=== PATIENT | female | born 1990 | race Caucasian/White ===

== ENCOUNTER 2017-04-06 16:05 | Emergency (ER) | payer BC ==
[2017-04-06 16:36] VITALS: BP 128/83
--- NOTE | 2017-04-06 16:36 | UC ---
Respiratory Complaint HPI - HPI Summary HPI Summary: This is an otherwise healthy 26 yo female who presents with c/o for 1 week. It is mostly non-productive. No associated fever or SOB. No n/v/d or rash. Patient states that she has spent a lot of time in [facility] within the last couple of weeks and there was recently a notice a pertussis outbreak in [facility]. She has a 2 month old son at home and is mostly worried about his exposure risk and for that reason would like to be tested for pertussis. - History of Current Complaint Chief Complaint: UCRespiratory Stated Complaint: COUGH Hx Last Menstrual Period: 04/22/16 - Allergies/Home Medications Allergies/Adverse Reactions: Allergies Allergy/AdvReac Type Severity Reaction Status Date / Time No Known Allergies Allergy Verified 04/06/17 16:14 Home Medications: Home Medications Vitamin TAB* 1 tab PO DAILY 04/06/17 [History Confirmed 04/06/17] PMH/Surg Hx/FS Hx/Imm Hx Previously Healthy: Yes - Surgical History Surgical History: Yes Surgery Procedure, Year, and Place: Sinus Surgery X 2, 2009, [facility]. Right ACL Menisus, 2009, [place]. T&A, 2006, [facility] - Social History Alcohol Use: Occasionally Substance Use Type: None Smoking Status (MU): Never Smoked Tobacco Have You Smoked in the Last Year: No - Immunization History Most Recent Influenza Vaccination: Current for 2015/2016 Season Most Recent Tetanus Shot: Tdap 2015 Review of Systems Constitutional: Negative Skin: Negative Eyes: Negative ENT: Negative Respiratory: Cough Cardiovascular: Negative Gastrointestinal: Negative Genitourinary: Negative Motor: Negative Neurovascular: Negative Musculoskeletal: Negative Neurological: Negative Psychological: Negative All Other Systems Reviewed And Are Negative: Yes Physical Exam Triage Information Reviewed: Yes Appearance: Well-Appearing Vital Signs: Initial Vital Signs Temp 98.1 F 04/06/17 16:08 Pulse 82 04/06/17 16:08 Resp 16 04/06/17 16:08 BP 128/83 04/06/17 16:08 Pulse Ox 98 04/06/17 16:08 Vital Signs Reviewed: Yes ENT: Positive: Normal ENT inspection Neck: Positive: Supple, Nontender, No Lymphadenopathy Respiratory: Positive: Chest non-tender, Lungs clear, Normal breath sounds. Negative: Crackles, Rhonchi, Stridor, Wheezing Cardiovascular: Positive: RRR, No Murmur Abdomen Description: Positive: Nontender Diagnostic Evaluation - Laboratory O2 Sat by Pulse Oximetry: 98 Respiratory Course/Dx - Course Course Of Treatment: This is an otherwise healthy 26 yo female with a 2month old at home who presents with a mild cough and concern for pertussis, requesting testing. Discussed empiric treatment, which she declined. Nasal specimen was collected. - Differential Dx/Diagnosis Differential Diagnosis/HQI/PQRI: Bronchitis, Influenza, Sinusitis Provider Diagnoses: 1. Cough, likely viral Discharge - Discharge Plan Condition: Stable Disposition: HOME Patient Education Materials: Pertussis (ED) Referrals: Bonnie Duran [Primary Care Provider] - If Needed Additional Instructions: Instructions: 1. It will take several days for your test results to return, but suspicion is low that your cough represents pertussis
== END 2017-04-06 16:38 | disposition home or self-care (01) ==
LOC: UCCORT 16:05
DX: R05 Cough (principal)
CPT/HCPCS: 87798; 99211; G0463

== ENCOUNTER 2017-09-14 07:38 | Emergency (ER) | payer BC ==
--- OUTSIDE RECORDS SUMMARY | 2017-09-14 07:46 | XMS REPORT ---
:1990 External Reference #:[id number] Author Organization [facility] Address [address], [address] [place] [address] Phone [phone] Care Team Providers Name Role Phone Karen Blackburn PA-C Care Team Information [employer] Officer Unavailable Karen Blackburn PA-C Primary Care Physician Unavailable Payers Type Date Identification Numbers Payment Provider Subscriber Commercial Policy Number: [id number] [employer] [place] Goldie Dodson PayID: [id number] [address] [address] [place] [address] Problems Description No Information Social History Type Date Description Comments Marital Status Occupation Teacher ETOH Use Rarely consumes alcohol Smoking Patient denies history of smoking Recreational Drug Use Denies Drug Use Daily Caffeine Consumes on average 1 cup of regular coffee per day Allergies, Adverse Reactions, Alerts Date Description Reaction Status Severity Comments 09/02/2017 NKDA active Medications Medication Date Status Form Strength Qnty SIG Indications Ordering Provider Active Tablets 1 by mouth Unknown every day Vital Signs Date Vital Result Comment 09/02/2017 BP Systolic 122 mmHg BP Diastolic 80 mmHg Height 70 inches 5'10" Weight 222.00 lb BMI (Body Mass Index) 31.9 kg/m2 BSA (Body Surface Area) 2.18 m2 [place] body weight in kilograms 68 Results Description No Information Procedures Date CPT Code Description Status 01/28/2017 20452 Vaginal Delivery Only Completed Encounters Type Date Location Provider CPT E/M Dx Office Visit 09/02/2017 3:00p [facility] [id number] K80.20 Carlton Jarquin Plan of Care Future Appointment(s):09/23/2017 3:30 pm - Bright Jarquin M.D. at [facility]/02/2017 - Bright Jarquin M.D.K80.20 Calculus of gallbladder w/o cholecystitis w/o obstructionComments:She does not report a clear fatty food intolerance pattern. She does not want surgery. She has been asked to keep a food diary in the following fashion; Have days she takes only fatty foods opposite days she has primarily non fatty meals. She has been asked to keep a diary of what she eats and if she has pain and more importantly when she has pain. When she returns in two weeks she will be asked tobring this list so we can review the pattern, if any, that is present.The use of a food diary in these circumstances can be instrumental in demonstrating clear presence or absence of biliary tract symptoms when determining whether or not the biliary tract is responsible for symptoms and if surgery will be beneficial for symptom treatment in this circumstance.Questions were addressed and assurance wasoffered.Follow up:2 - 3 weeks
--- OUTSIDE RECORDS SUMMARY | 2017-09-14 07:47 | XMS REPORT ---
:1990 External Reference #:[id number] Author Organization [facility] Address [address] [place] [address] Phone [phone] Care Team Providers Name Role Phone Karen Blackburn PA Care Team Information Ambulance Assistant Unavailable Payers Type Date Identification Numbers Payment Provider Subscriber Commercial Policy Number: [id number] [facility] Commercial Goldie Dodson PayID: [id number] [address] [address] [place] [address] Problems Date Description Provider Status Onset: 03/26/2011 Migraine with typical aura Bonnie Lamas PA Active Onset: 03/26/2011 Chronic sinusitis Bonnie Lamas PA Active Onset: 03/26/2011 Anxiety state Bonnie Lamas PA Active Family History Date Family Member(s) Problem(s) Comments Father No Current Problems Mother Anxiety Mother GERD Mother Irritable Bowel Syndrome First Son 10 weeks Social History Type Date Description Comments Marital Status Lives With Spouse 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 [employer] ETOH Use Occasionally consumes alcohol Smoking Patient has never smoked Daily Caffeine Does Not Consume Caffeine Allergies, Adverse Reactions, Alerts Date Description Reaction Status Severity Comments 10/13/2014 NKDA active Medications Medication Date Status Form Strength Qnty SIG Indications Ordering Provider 06/11/ Active Tablets 1 by Tay, 2015 mouth Siddharth, every day DO Zyrtec Allergy 04/09/ Active Tablets 10mg 90tabs 1 by Tay, 2015 mouth Siddharth, every day DO Rhinocort Aqua 07/16/ Hx Suspension 32mcg/Act 8.600g 1 spray J01.90 Tay, 2015 - m each Siddharth, 04/10/ nostril DO 2016 twice a day as needed. Pt is - needs this as it is only cat b nasal spray Amoxicillin 07/16/ Hx Tablets 875mg 20tabs 1 by J01.90 Tay, 2015 - mouth Siddharth, 07/26/ twice a DO 2016 day Butalbital-Apa 01/15/ Hx Capsules 50-300-40m 25caps take 1 Cross, p-Caffeine 2014 - g capsule Siddharth, 07/16/ At Onset DO 2015 Of Headache, May Take Every 4 Hours Tri-Linyah 11/21/ Hx Tablets 0.18/0.215 84tabs take 1 Tay, 2014 - /0.25 tablet Siddharth, 04/09/ mg-35 mcg once DO 2015 daily Orbivan 11/30/ Hx Capsules 50-300-40m 25caps 1 po at Cross, 2013 - g onset of Siddharth, 01/15/ peguero, december DO 2014 take [id number] Fluoxetine HCL 11/30/ Hx Capsules 40mg 180cap 2 po qd Tay, 2013 - s Siddharth, 02/27/ DO 2014 Naproxen 04/05/ Hx Tablets 500mg 60tabs 1 po bid Tay 2012 - with food Siddharth, 02/27/ x 2 DO 2014 weeks, then prn Tri-Sprintec 12/10/ Hx Tablets 84tabs take 1 Tay2012 - tablet by Siddharth, 02/27/ mouth DO 2014 once daily Flonase / Hx Suspension 50mcg/Act instill 1 Unknown 0000 - spray 07/16/ into each 2016 nostril twice a day Immunizations CPT Code Status Date Vaccine Reaction Lot # [id number] Given 07/22/2017 Flulaval Immunization [facility] 58037 Given 09/27/2013 Afluria Or Fluvirin Flu Vac Intramuscular 38700 Given 04/28/2012 Afluria Or Fluvirin Flu Vac Intramuscular 40854 Given 06/14/2009 Afluria Or Fluvirin Flu Vac Intramuscular 71853 Given 06/14/2009 HPV Vaccine (Gardasil) 3 Dose Schedule 16997 Given 02/20/2009 HPV Vaccine (Gardasil) 3 Dose Schedule 73727 Given 12/08/2008 HPV Vaccine (Gardasil) 3 Dose Schedule 02013 Given 03/10/2006 Menactra/Menveo Meningococcal Vaccine 41621 Given 03/10/2006 Hepatitis A, Ped/Adolescent 2 Dose Schedule 18233 Given 09/02/2004 Immunization Td 7 Yrs Or Older Vital Signs Date Vital Result Comment 08/20/2017 Body Temperature 97.9 F Weight 231.00 lb Heart Rate 72 /min BP Systolic 118 mmHg BP Diastolic 72 mmHg Respiratory Rate 18 /min Height 69 inches 5'9" 04/10/17 BMI (Body Mass Index) 34.1 kg/m2 04/10/2017 Weight 231.00 lb Heart Rate 76 /min BP Systolic 122 mmHg BP Diastolic 82 mmHg Respiratory Rate 18 /min Height 69 inches 5'9" 04/10/17 BMI (Body Mass Index) 34.1 kg/m2 07/16/2016 Body Temperature 98.6 F Weight 217.00 lb Heart Rate 78 /min BP Systolic 120 mmHg BP Diastolic 82 mmHg Respiratory Rate 18 /min Height 69 inches 5'9" BMI (Body Mass Index) 32.0 kg/m2 06/11/2016 Weight 219.00 lb Heart Rate 72 /min BP Systolic 130 mmHg BP Diastolic 90 mmHg Respiratory Rate 18 /min Height 69 inches 5'9" BMI (Body Mass Index) 32.3 kg/m2 04/09/2016 Weight 219.00 lb Heart Rate 72 /min BP Systolic 130 mmHg BP Diastolic 80 mmHg Respiratory Rate 18 /min Height 69 inches 5'9" BMI (Body Mass Index) 32.3 kg/m2 02/27/2015 Weight 220.00 lb Heart Rate 72 /min BP Systolic 120 mmHg BP Diastolic 78 mmHg Respiratory Rate 18 /min Height 69 inches 5'9" BMI (Body Mass Index) 32.5 kg/m2 04/25/2014 Weight 202.00 lb Heart Rate 70 /min BP Systolic 120 mmHg BP Diastolic 70 mmHg Respiratory Rate 18 /min Height 69 inches 5'9" 11/30/2013 Weight 205.00 lb Heart Rate 68 /min BP Systolic 124 mmHg BP Diastolic 74 mmHg Respiratory Rate 18 /min 04/29/2013 Weight 207.00 lb Heart Rate 70 /min BP Systolic 120 mmHg BP Diastolic 72 mmHg Respiratory Rate 18 /min Height 69 inches 5'9" 04/05/2013 Weight 208.00 lb Heart Rate 70 /min BP Systolic 128 mmHg BP Diastolic 78 mmHg Respiratory Rate 18 /min 12/14/2012 Weight 215.00 lb Heart Rate 74 /min BP Systolic 130 mmHg BP Diastolic 72 mmHg Respiratory Rate 18 /min 04/28/2012 BP Systolic 124 mmHg BP Diastolic 78 mmHg 04/28/2012 Weight 200.00 lb Heart Rate 74 /min BP Systolic 142 mmHg BP Diastolic 86 mmHg Respiratory Rate 18 /min Height 68.5 inches 5'8.50" 11/28/2011 Weight 188.00 lb Heart Rate 74 /min BP Systolic 120 mmHg BP Diastolic 70 mmHg Respiratory Rate 18 /min Height 68.5 inches 5'8.50" 04/23/2011 Weight 180.00 lb Heart Rate 76 /min BP Systolic 128 mmHg BP Diastolic 80 mmHg Height 68.5 inches 5'8.50" 03/26/2011 Weight 178.00 lb Heart Rate 60 /min BP Systolic 112 mmHg l arm BP Diastolic 74 mmHg l arm Respiratory Rate 18 /min Height 68.5 inches 5'8.50" 11/13/2010 Weight 182.00 lb Heart Rate 72 /min BP Systolic 106 mmHg l arm BP Diastolic 70 mmHg l arm Respiratory Rate 18 /min 08/15/2010 Weight 176.00 lb Heart Rate 56 /min BP Systolic 106 mmHg l arm BP Diastolic 72 mmHg l arm Respiratory Rate 18 /min 05/20/2010 Weight 175.00 lb Heart Rate 66 /min BP Systolic 126 mmHg BP Diastolic 82 mmHg Respiratory Rate 16 /min 04/19/2010 Weight 170.00 lb Heart Rate 76 /min BP Systolic 118 mmHg LEFT BP Diastolic 72 mmHg LEFT Respiratory Rate 16 /min Height 69.25 inches 5'9.25" 09/05/2009 Body Temperature 96.5 F Weight 173.00 lb Heart Rate 85 /min BP Systolic 114 mmHg BP Diastolic 76 mmHg Respiratory Rate 15 /min Height 69.50 inches 5'9.50" O2 % BldC Oximetry 98 % 08/17/2009 Body Temperature 97.4 F Weight 170.00 lb Heart Rate 102 /min BP Systolic 108 mmHg BP Diastolic 74 mmHg Respiratory Rate 13 /min O2 % BldC Oximetry 99 % 06/14/2009 Weight 176.00 lb Heart Rate 66 /min BP Systolic 116 mmHg BP Diastolic 72 mmHg Respiratory Rate 15 /min 03/23/2009 Weight 166.00 lb Heart Rate 72 /min BP Systolic 118 mmHg BP Diastolic 74 mmHg Respiratory Rate 15 /min 02/13/2009 Body Temperature 97.1 F Weight 163.00 lb Heart Rate 68 /min BP Systolic 112 mmHg LEFT BP Diastolic 68 mmHg LEFT Respiratory Rate 14 /min 12/08/2008 Weight 164.00 lb Heart Rate 70 /min BP Systolic 116 mmHg BP Diastolic 70 mmHg Respiratory Rate 15 /min 09/07/2008 Weight 167.00 lb Heart Rate 70 /min BP Systolic 130 mmHg BP Diastolic 84 mmHg 08/17/2008 Weight 166.00 lb Heart Rate 67 /min BP Systolic 120 mmHg BP Diastolic 80 mmHg Respiratory Rate 16 /min 06/09/2008 Weight 164.00 lb Heart Rate 66 /min BP Systolic 110 mmHg BP Diastolic 80 mmHg Respiratory Rate 13 /min 02/21/2008 Weight 167.00 lb Heart Rate 66 /min BP Systolic 134 mmHg BP Diastolic 80 mmHg Respiratory Rate 16 /min 11/19/2007 Weight 174.00 lb Heart Rate 66 /min BP Systolic 120 mmHg BP Diastolic 70 mmHg Respiratory Rate 18 /min 09/02/2007 Weight 170.00 lb Heart Rate 78 /min BP Systolic 126 mmHg BP Diastolic 72 mmHg Respiratory Rate 24 /min 08/19/2007 Weight 178.00 lb Heart Rate 71 /min BP Systolic 120 mmHg BP Diastolic 80 mmHg Respiratory Rate 17 /min 09/04/2006 Weight 164.31 lb Heart Rate 76 /min BP Systolic 110 mmHg BP Diastolic 70 mmHg Respiratory Rate 16 /min Height 69.25 inches 5'9.25" 03/10/2006 Weight 156.00 lb Heart Rate 68 /min BP Systolic 110 mmHg BP Diastolic 70 mmHg Respiratory Rate 18 /min Height 68.50 inches 5'8.50" 03/17/2005 Body Temperature 99.2 F Weight 147.00 lb Heart Rate 74 /min BP Systolic 110 mmHg BP Diastolic 66 mmHg Respiratory Rate 16 /min 11/26/2004 Body Temperature 97.7 F Weight 156.00 lb Heart Rate 74 /min BP Systolic 120 mmHg BP Diastolic 70 mmHg Respiratory Rate 14 /min 11/13/2004 Body Temperature 100.1 F Weight 157.00 lb Respiratory Rate 18 /min Results Test Date Test Result H/L Range Note CBS W/Automated Diff 08/19/2017 White Blood Count 9.4 K/uL 3.1-10.7 1 Red Blood Count 5.03 M/uL 3.90-5.40 1 Hemoglobin 15.3 gm/dL 11.6-15.8 1 Hematocrit 43.0 % 36.0-46.1 1 Mean Cell Volume 85.5 fl 80.9-99.0 1 Mean Corpuscular HGB 30.4 pg 25.9-32.7 1 Mean Corpuscular HGB Conc 35.6 g/dL High 30.8-34.3 1 Platelet Count 219 K/uL 155-360 1 Red Cell Distri Width SD 40.2 fl 3-47 1 Red Cell Distri Width %CV 13.1 % 11.7-14.4 1 Mean Platelet Volume 11.5 fL 8.9-12.4 1 Neut% 46.5 % 40.4-72.8 1 Lymph % 43.1 % High 20.0-42.0 1 Cavalier % 8.8 % 4.3-13.2 1 Eo% 1.3 % 0.0-6.6 1 Bas% 0.3 % 0.0-1.1 1 Neut# 4.36 K/uL 1.8-7.0 1 Lymph # 4.03 K/uL High 1.0-4.0 1 Cavalier # 0.82 K/uL 0.3-0.9 1 Eos # 0.12 K/uL 0.0-0.5 1 Baso # 0.03 K/uL 0.0-0.1 1 Protime 08/19/2017 Protime 12.9 seconds 12.0-14.4 1 Inr 1.0 0.9-1.1 1, 2 Laboratory test finding 08/19/2017 Act Partial 25.7 seconds 23.4-35.0 1 , 3 Thrombo Time Comprehensive Metabolic 08/19/2017 Glucose 151 mg/dL High 74-106 1 Panel BUN 14 mg/dL 7-18 1 Creatinine 0.8 mg/dL 0.6-1.3 1 Glom Filtration Rate, Estimate >60 mL/min >60 1 If >60 mL/min >60 1, 4 BUN/Creat 17.5 ratio 1 Sodium 138 mmol/L 136-145 1 Potassium 3.3 mmol/L Low 3.5-5.1 1 Chloride 105 mmol/L 98-107 1 Carbon Dioxide 23 mmol/L 21-32 1 Anion Gap 10 mEq/L 8-16 1 Calcium 9.0 mg/dL 8.5-10.1 1 Total Protein 7.8 g/dL 6.4-8.2 1 Albumin 4.0 g/dL 3.4-5.0 1 Globulin 3.8 g/dL 1.9-4.3 1 Alb/Glob 1.1 ratio 1 Bilirubin,Total 0.5 mg/dL 0.2-1.0 1 Sgot/Ast 71 U/L High 15-37 1 SGPT/Alt 44 U/L 12-78 1 Alkaline Phosphatase 177 U/L High 45-117 1 Laboratory test finding 08/19/2017 Lipase 240 U/L 56-289 1 CK 97 U/L 26-192 1 Troponin-I < 0.015 ng/mL 1, 5 Urine Culture 11/04/2016 Urine Culture URETHRAL RHINA 6 Quantity 50,000 - 100,000 <SEE NOTE> 6, 7 Hemoglobin/Hematocrit 11/04/2016 Hemoglobin 13.8 gm/dL 11.6-15.8 6 Hematocrit 40.1 % 36.0-46.1 6 Ua RFX Micro & Culture II 11/04/2016 Urine Color YELLOW Yellow 6 Urine Clarity CLEAR Clear 6 Urine Glucose - Dipstick NEGATIVE mg/dL Negative 6 Urine Bilirubin - Dipstick NEGATIVE Negative 6 Urine Ketone NEGATIVE mg/dL Negative 6 Urine Specific [place] 1.010 1.010-1.030 6 Urine Blood NEGATIVE Negative 6 Urine PH 6.5 6.5-7.5 6 Urine Protein - Dipstick NEGATIVE mg/dL Negative 6 Urine Urobilinogen - Dipstick 0.2 E.U./dL 0.2-1.0 6 Urine Nitrite - Dipstick NEGATIVE Negative 6 Urine Leuk Esterase NEGATIVE Negative 6 Source: URINE, CLEAN CAT <SEE NOTE> 6, 8 Glucose,1 HR Post Glucola 11/04/2016 1 HR Glucose,Post Glucola 117 mg/dL -138 6, 9 1 Hour Urine Glucose NEGATIVE % Negative 6 1 Hour Urine Ketone NEGATIVE Negative 6 Laboratory test 09/05/2016 Afp,Tetra Profile REF#[id number] 6, 10 finding Genital Culture W/ 07/02/2016 Gram Stain GRAM STAIN INDIC <SEE 11, 12 Gram Stain NOTE> Gram Stain MODERATE GR POS. <SEE NOTE> 11, 13 Gram Stain NO WHITE BLOOD C <SEE NOTE> 11, 14 Genital Culture GENITAL RHINA 11 Chlamydia/GC Faby 07/02/2016 Chlamydia Trachomatis, Faby Negative Negative 11 Neisseria Gonorrhoeae, Faby Negative Negative 11, 15 CBS W/Automated Diff 06/23/2016 White Blood Count 10.4 K/uL 3.1-10.7 16 Red Blood Count 4.53 M/uL 3.90-5.40 16 Hemoglobin 13.6 gm/dL 11.6-15.8 16 Hematocrit 39.6 % 36.0-46.1 16 Mean Cell Volume 87.4 fl 80.9-99.0 16 Mean Corpuscular HGB 30.0 pg 25.9-32.7 16 Mean Corpuscular HGB Conc 34.3 g/dL 30.8-34.3 16 Platelet Count 255 K/uL 155-360 16 Red Cell Distri Width SD 38.1 fl 3-47 16 Red Cell Distri Width %CV 12.2 % 11.7-14.4 16 Mean Platelet Volume 10.9 fL 8.9-12.4 16 Neut% 56.9 % 40.4-72.8 16 Lymph % 31.9 % 17.0-46.1 16 Cavalier % 9.4 % 4.3-13.2 16 Eo% 1.5 % 0.0-6.6 16 Bas% 0.3 % 0.0-1.1 16 Neut# 5.93 K/uL 1.8-7.0 16 Lymph # 3.33 K/uL 1.8-7.0 16 Cavalier # 0.98 K/uL High 0.3-0.9 16 Eos # 0.16 K/uL 0.0-0.5 16 Baso # 0.03 K/uL 0.0-0.1 16 Laboratory test finding 06/23/2016 Lead,Blood (Adult) <1 g/dL 0-19 16, 17 Varicella-Zoster Virus IgG Ab <135 index Low Immune >165 16, 18 Laboratory test 06/23/2016 Antibody Nonreactive Nonreactive 16, 19 finding Detection-Hiv1/2 SCRN Type And Screen 06/23/2016 Patient Blood Type O POS 16 Antibody Screen Negative Negative 16 Rubella Igg Antibody 06/23/2016 Rubella IgG Antibody Reactive Reactive 16 Rubella IgG Iu/ml 62.2 IU/mL >=10.0 16, 20 Laboratory test 06/23/2016 Treponema Antibody Nonreactive Nonreactive 16 , 21 finding [place] Hepatitis B Surface Antigen Nonreactive Nonreactive 16, 22 Urine Culture 06/23/2016 Urine Culture URETHRAL RHINA 16 Quantity 10,000 - 50,000 <SEE NOTE> 16, 23 Ua RFX Micro & Culture II 06/23/2016 Urine Color YELLOW Yellow 16 Urine Clarity CLEAR Clear 16 Urine Glucose - Dipstick NEGATIVE mg/dL Negative 16 Urine Bilirubin - Dipstick NEGATIVE Negative 16 Urine Ketone NEGATIVE mg/dL Negative 16 Urine Specific [place] <=1.005 Low 1.010-1.030 16 Urine Blood NEGATIVE Negative 16 Urine PH 6.0 Low 6.5-7.5 16 Urine Protein - Dipstick NEGATIVE mg/dL Negative 16 Urine Urobilinogen - Dipstick 0.2 E.U./dL 0.2-1.0 16 Urine Nitrite - Dipstick NEGATIVE Negative 16 Urine Leuk Esterase NEGATIVE Negative 16 Source: URINE, CLEAN CAT <SEE , 24 NOTE> Laboratory test finding 06/11/2016 HCG,Quant Preg 83564 mU/mL 25 Laboratory test finding 04/09/2016 TSH 0.92 uIU/mL 0.35-4.94 Tesosterone LC, F&T 04/09/2016 Testosterone, LCMS 20.8 ng/dL (9.0- 55.0) 26 Fem/CHLD Testo, Free 2.1 pg/mL (0.8-7.4) 27 Sex Horm Bind Glob @ 53 nmol/L (18-136) 28 Dheas Panal 04/09/2016 Dhea Sulfate 218 g/dL (63-380) 29 Laboratory test finding 04/09/2016 Prolactin 16.7 ng/ml 30 Basic (BMP) 04/09/2016 Sodium 136 mmol/L 134-142 Potassium 4.2 mmol/L 3.5-5.2 Chloride 102 mmol/L 97-109 Carbon Dioxide 27 mmol/L 24-34 Glucose 85 mg/dL 70-105 BUN 12 mg/dL 6-26 Creatinine 0.7 mg/dL 0.5-1.4 Calcium 10.1 mg/dL 8.5-10.2 Anion Gap 11 mmol/L 6-14 Non Carmel Egfr >60 >60 31 Carmel Egfr >60 >60 32 Laboratory test finding 04/09/2016 Pap Smear Thin Prep SEE NOTE 33 Laboratory test finding 04/23/2011 Cytology Pap See Note 34 GC / Chlamydia See Note 35 Laboratory test finding 04/19/2010 Cytology Pap See Note 36 GC / Chlamydia See Note 37 Laboratory test finding 03/23/2009 Cytology Pap See Note 38 GC / Chlamydia See Note 39 Laboratory test finding 08/19/2007 A/G Ratio 1.7 1.0-2.2 Absolute Basophils 0.05 K/ul 0.0-0.3 Absolute Eosinophils 0.24 K/ul 0.0-0.5 Absolute Lymphocytes 2.14 K/ul 0.8-4.8 Absolute Monocytes 0.63 K/ul 0.1-1.0 Absolute Neutrophils 4.29 K/ul 2.05-7.63 Albumin 4.5 g/dL 3.5-5.0 Alkaline Phosphatase 91 U/L 38-126 Alt 72 U/L High 9-52 Ast 38 U/L High 14-36 BUN 13 mg/dL 7-18 BUN/CR Ratio 16.0 Ratio 12-20 Basophil 0.7 % 0-2 Calcium 9.6 mg/dL 8.7-10.5 Carbon Dioxide 26 mmol/L 22-30 Chloride 101 mmol/L 98-107 Creatinine, Serum 0.8 mg/dL 0.7-1.2 Eosinophil 3.2 % 0-4 Globulin 2.6 g/dL Low 2.7-4.3 Glucose 79 mg/dL 65-105 Hematocrit 42.7 % 37.0-51.0 Hemoglobin 14.5 GM/dl 12.0-16.0 Lymphocytes 29.1 % 20-44 MCH 30.0 pg 26.0-32.0 MCHC 33.9 g/dL 31.0-36.0 MCV 88 FL 80-97 Monocytes 8.6 % 2-10.0 Neutrophils 58.4 % 50-70 Platelet Count 244 K/ul 140-440 Potassium 4.0 mmol/L 3.6-5.0 RBC 4.83 M/ul 4.2-6.3 RDW 10.1 % Low 11.5-14.5 Sodium 139 mmol/L 137-145 TSH 1.638 uIU/ml 0.50-6.00 Total Bilirubin 0.5 mg/dL 0.2-1.3 Total Protein 7.1 g/dL 6.3-8.2 WBC 7.4 K/ul 4.1-10.9 Laboratory test finding 03/17/2005 Culture Throat Normal Throat FL <See 40 Note> 1 CP 2 THERAPEUTIC INR RANGE: 2.0 - 3.0 DVT, Pulmonary embolus, prophylaxis against venous thrombosis or systemic embolization in high risk patients. 2.5 - 3.5 Mechanical heart valves 3 Is patient on anticoagulants? Coumadin 4 Note: Persistent reduction for 3 months or more in an eGFR <60 mL/min/1.73 m2 defines CKD. Patients with eGFR values >/=60 mL/min/1.73 m2 may also have CKD if evidence of persistent proteinuria is present. The original MDRD equation for estimated GFR is not valid for patients less than 18 years of age. Additional information may be found at www.kdoqi.org. 5 0.0 - 0.045 ng/mL: Normal 0.046 - 0.5 ng/mL: Suggestive 0.6 - 1.5 ng/mL: Consistent 6 Z34.02 7 50,000 - 100,000 CFU/mL 8 URINE, CLEAN CATCH 9 POST GLUCOLA 10 FORWARDED TO REFERENCE LABORATORY. 11 Z34.0 12 GRAM STAIN INDICATES NORMAL GENITAL RHINA 13 MODERATE GR POS. BACILLI SUGGESTIVE OF LACTOBACILLUS SP. 14 NO WHITE BLOOD CELLS 15 Performed at: [address] [id number] Surgical Instrument Repair Specialist: Neelima Walker MD, Phone: [phone] 16 Z34.01 17 Environmental Exposure: WHO Recommendation <20 Occupational Exposure: OSHA Lead Std 40 HAIR 30 Detection Limit=1 18 Negative <135 Equivocal 135 - 165 Positive >165 A positive result generally indicates exposure to the pathogen or administration of specific immunoglobulins, but it is not indication of active infection or stage of disease. Performed at: [facility] [address] [id number] Surgical Instrument Repair Specialist: Neelima Walker MD, Phone: [phone] 19 NOTE: A NON-REACTIVE RESULT INDICATES THAT HIV-1 AND HIV-2 ANTIBODIES HAVE NOT BEEN FOUND IN THIS PATIENT SPECIMEN. A NON-REACTIVE RESULT, HOWEVER, DOES NOT PRECLUDE PREVIOUS EXPOSURE OF INFECTION WITH HIV. * [facility] LAW PROHIBITS THE REDISCLOSURE OF THIS RESULT * * TO ANY UNAUTHORIZED [employer]. * 20 Values >=10.0 IU/mL are positive for IgG antibodies to rubella virus and are considered IMMUNE. 21 Please Note: A nonreactive test result does not exclude the possibility of exposure to, or infection with syphilis. T. pallidum antibodies may be undetectable in some stages of the infection and in some clinical conditions. 22 HBsAg not detected; does not exclude the possibility of exposure to or early acute infections with HBV. 23 10,000 - 50,000 CFU/mL 24 URINE, CLEAN CATCH 25 INTERPRETATION: LESS THAN 6 NEGATIVE 6 - 10 BORDERLINE (SUGGEST REPEAT IN 48 HOURS) APPROX HCG RANGE WEEKS POST LMP 11 - 130 3 - 4 WEEKS 75 - 2600 4 - 5 WEEKS 850 - 21533 5 - 6 WEEKS 4000 - 004686 6 - 7 WEEKS 98161 - 506477 7 - 12 WEEKS 66726 - 830880 12 - 16 WEEKS 1400 - 99400 16 - 29 WEEKS 940 - 37514 29 - 41 WEEKS Unless otherwise specified, testing [facility] [address] [address] 26 This test is suggested for women, children and hypogonadal males due to improved sensitivity when testing by LC-MS/MS. The assay was developed and its performance characteristics determined by [facility], and it has been approved by [facility]. The [place] Food and Drug Administration has not approved or cleared this test. FDA clearance or approval, however, is not currently required for clinical use. The results are not intended to be used as the sole means for clinical diagnosis or patient management decisions. Total testosterone values may not reflect optimal concentrations in all individuals. Free or bioavailable testosterone measurement may provide supportive information. Access complete set of age- and/or gender- specific reference intervals for this test in the [facility] [employer] ([employer]) PERFORMED AT [address] [place] [address] 27 THE CONCENTRATION OF FREE TESTOSTERONE IS DERIVED FROM A MATHEMATICAL EXPRESSION BASED ON THE CONSTANT FOR THE BINDING OF TESTOSTERONE TO SHBG. 28 ADULT REFERENCE RANGE Unless otherwise specified, [place] [address] 29 Unless otherwise specified, [place] [address] 30 Prolactin Female Normal Values: Pre-menopausal: 3.3-26.7 ng/mL Post-menopausal:2.7-19.6 ng/mL 31 Concerning GFR Guidelines: Normal function or mild renal disease, if clinically at risk: >/=60 mL/min Moderately decreased: 30-59 Severely decreased: 15-29 Renal failure: <15 Glomerular Filtration Rate (GFR) is estimated based on the MDRD equation, which assumes a steady state for creatinine as recommended by the National Kidney Disease Education Program in conjunction with the National Institutes of Health and the National Kidney Foundation. Clinical conditions in which it may be necessary to measure GFR by using clearance methods include extremes of age and body size, severe malnutrition or obesity, diseases of skeletal muscle, paraplegia or quadriplegia, vegetarian diet, rapidly changing kidney function, and calculation of the dose of potentially toxic drugs that are excreted by the kidneys. 32 Concerning GFR Guidelines for Americans: Normal function or mild renal disease, if clinically at risk: >/=60 mL/min Moderately decreased: 30-59 Severely decreased: 15-29 Renal failure: <15 33 [facility]. [address] [place] [address] CYTOLOGY REPORT Source of Specimen(s): Thin Prep Vaginal / Cervical Pap Smear - One Vial Date of Last Menstrual Period: 03/23/16 Other Clinical Conditions: Last Pap Smear: 2010 normal REFLEX TO HPV ASSAY IF RESULTS OF THIS PAP ARE ASCUS Specimen Adequacy Satisfactory for evaluation Absence of endocervical/transformation zone component General Categorization Negative for intraepithelial lesion or malignancy Interpretation NEGATIVE FOR INTRAEPITHELIAL LESION OR MALIGNANCY Reported: 04/14/2016 14:22 Electronically Signed Out By Marzena Chand SCT(ASCP)([facility]) [facility] Soniya CarmonaDominik Amezcua CT(ASCP) JC ICD9 Code: Z01.419 QC Reviewed: Y Unless otherwise specified, testing performed by [facility] [place] [address] [address] Cytology Laboratory [address], [address] [place] [address] CYTOLOGY REPORT Name: Goldie Montemayor : 1990 (Age: 20) Sex: F Location: [facility] Sec. #: [id number] Date Collected: 04/23/2011 Billing #: [id number] Date Received: 04/23/2011 Med. Rec. #: [id number] Requisition # [id number] Physician(s): BONNIE JEAN Source of Specimen: ENDOCERVICAL/ECTOCERVICAL THIN PREP Clinical Information: Date of Last Menstrual Period: 03/22/11 Menstrual History: Regular Specimen Adequacy: SATISFACTORY FOR EVALUATION. ADEQUATE ENDOCERVICAL/TRANSFORMATION ZONE. General Categorization: NEGATIVE FOR INTRAEPITHELIAL LESION OR MALIGNANCY. dcl Electronic Signature JONELLE Fernández (ASCP) Reported: 04/29/2011 Also seen by:JONELLE Fernández (ASCP) Cytology Outreach [facility] ICD-9 Code(s) V72.31 35 Special Testing Laboratory [address], [address] [place] [address] GC / CHLAMYDIA REPORT Name: Goldie Montemayor : 1990 (Age: 20) Sex: F Location: [facility] Sec. #: [id number] Date Collected: 04/23/2011 Billing #: [id number] Date Received: 04/23/2011 Med. Rec. # [id number] Requisition # [id number] Physician( s): BONNIE JEAN Source of Specimen: ThinPrep, APTIMA Results: Neisseria gonorrhoeae NEGATIVE Chlamydia trachomatis NEGATIVE Comment: This analysis was performed using second generation nucleic acid amplification testing (NAAT). Reported: 04/24/2011 Electronic Signature [facility] Clementine Guzmán [facility] Technical [facility] ICD-9 Codes: A: V72.31 36 Cytology Laboratory [address] [facility] [place] [address] CYTOLOGY REPORT Name: Goldie Montemayor : 1990 (Age: 19) Sex: F Location: [facility] Soc. Sec. #: [id number] Date Collected: 04/19/2010 Billing #: [id number] Date Received: 04/19/2010 Requisition # [id number] Physician(s): BONNIE JEAN Source of Specimen: ENDOCERVICAL/ECTOCERVICAL THIN PREP Clinical Information: Date of Last Menstrual Period: 04/16/10 Menstrual History: Regular Specimen Adequacy: SATISFACTORY FOR EVALUATION. ADEQUATE ENDOCERVICAL/TRANSFORMATION ZONE. General Categorization: NEGATIVE FOR INTRAEPITHELIAL LESION OR MALIGNANCY. md Electronic Signature Carlos Morales MD Reported: 04/26/2010 Also seen by: JONELLE Fernández (ASCP) Cytology Outreach [facility] ICD-9 Code(s) V72.31 37 Special Testing Laboratory [address] [facility] [place] [address] GC / CHLAMYDIA REPORT Name: Goldie Montemayor : 1990 (Age: 19) Sex: F Location: [facility] Soc. Sec. #: [id number] Date Collected: 04/19/2010 Billing #: [id number] Date Received: 04/19/2010 Requisition # [id number] Physician(s): BONNIE JEAN Source of Specimen: ThinPrep Results: Neisseria gonorrhoeae NEGATIVE Chlamydia trachomatis NEGATIVE Comment: This analysis was performed using second generation nucleic acid amplification testing (NAAT). Reported: 04/23/2010 Electronic Signature [facility] Clementine Heath [facility] [place] ICD-9 Codes: A: V72.31 38 Cytology [id number] [facility], [address] [place] [address] CYTOLOGY REPORT Name: Goldie Montemayor Accession # : [id number] : 1990 (Age: 18) Sex: F Location: [facility] Soc. Sec. #: [id number] Date Collected: 03/23/2009 Billing #: [id number] Date Received: 03/23/2009 Requisition # [id number] Physician(s): BONNIE JEAN Source of Specimen: ENDOCERVICAL/ECTOCERVICAL THIN PREP Clinical Information: Date of Last Menstrual Period: 03/08 Menstrual History:Regular Specimen Adequacy: SATISFACTORY FOR EVALUATION. NO ENDOCERVICAL/TRANSFORMATION ZONE. General Categorization: NEGATIVE FOR INTRAEPITHELIAL LESION OR MALIGNANCY. dcl Electronic Signature JONELLE Fernández (ASCP) Reported: 03/28/2009 Cytology Outreach [facility] ICD-9 Code(s) V72.31 39 Special Testing [id number] [facility], [address] Phone [facility] [place] [address] GC / CHLAMYDIA REPORT Name: Goldie Montemayor : 1990 (Age: 18) Sex: F Location: [facility] Soc. Sec. #: [phone] Date Collected: 03/23/2009 Billing #: [id number] Date Received: 03/23/2009 Requisition # [id number] Physician(s): BONNIE JEAN Source of Specimen: ThinPrep Results: Neisseria gonorrhoeaeNEGATIVE Chlamydia trachomatisNEGATIVE Comment: This analysis was performed using second generation nucleic acid amplification testing (NAAT). Reported: 03/27/2009 Electronic Signature miles Ritter [place] (ASCP) [facility] Outreach Technical Laboratory [facility] ICD-9 Codes: A: V72.31 40 NORMAL THROAT RHINA Procedures Date CPT Code Description Status 04/10/2016 75614 Echography Transvaginal Completed 04/10/2016 49018 Echography Transvaginal Completed 09/04/2006 09314 Spirometry /PFT With And Without Bronchodialator Completed (Bronchospasm) 09/04/2006 55466 Electrocardiogram Complete Completed 03/10/2006 63287 Visual Screening Test Completed 03/10/2006 09492 Screening Hearing Test Completed Encounters Type Date Location Provider CPT E/M Dx Office Visit 04/10/2017 10:00a [facility] [place] [address] Z00.00 J30.89 Office Visit 07/16/2016 11:15a [facility] [place] [address] J01.90 Office Visit 06/11/2016 3:00p [facility] [place] [address] N91.0 Office Visit 04/09/2016 2:00p [facility] [place] [address] N97.9 R10.30 Z01.419 Office Visit 02/27/2015 9:00a [facility] [place] [address] 473.9 300.00 346.00 V26.41 Plan of Care Future Appointment(s):04/13/2018 10:00 am - Karen Blackburn PA at [facility]2016 - Karen Blackburn PAK80.80 Other cholelithiasis without obstructionComments:Has appointment scheduled with Dr. Jarquin 1/3Advised to avoid fatty foods, ETOHCall/to ER with worsening pain, nausea, vomiting, other s /sFollow up:Prn
[2017-09-14 07:53] VITALS: BP 113/76
--- NOTE | 2017-09-14 08:16 | ED ---
Throat Pain/Nasal Congestion - HPI Summary HPI Summary: 27 yr old female with the complaint of sore throat for about five days, and some runny nose, and mild sinus congestion with bilateral ear pressure. 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 She denies fever, chills. No trouble swallowing, no trouble talking or breathing. - History of Current Complaint Chief Complaint: UCRespiratory Time Seen by Provider: 09/14/17 07:48 - Allergies/Home Medications Allergies/Adverse Reactions: Allergies Allergy/AdvReac Type Severity Reaction Status Date / Time seasonal Allergy Eyes Uncoded 09/14/17 07:53 Itchy/Swollen/Red/Watery PMH/Surg Hx/FS Hx/Imm Hx Respiratory History: Reports: Hx Asthma - EXERCISE INDUCED - Surgical History Surgery Procedure, Year, and Place: Sinus Surgery X 2, 2009, [facility]. Right ACL Menisus, 2009, [place]. T&A, 2005, [facility] Infectious Disease History: No Infectious Disease History: Denies: Traveled Outside the [place] in Last 30 Days - Social History Alcohol Use: None Substance Use Type: Reports: None Smoking Status (MU): Never Smoked Tobacco Have You Smoked in the Last Year: No Review of Systems Constitutional: Negative Positive: Sore Throat, Ear Ache All Other Systems Reviewed And Are Negative: Yes Physical Exam Triage Information Reviewed: Yes Vital Signs On Initial Exam: Initial Vitals Temp Pulse Resp BP Pulse Ox 98 F 89 20 113/76 100 09/14/17 07:46 09/14/17 07:46 09/14/17 07:46 09/14/17 07:46 09/14/17 07:46 Vital Signs Reviewed: Yes Appearance: Positive: Well-Appearing, No Pain Distress Skin: Positive: Warm, Skin Color Reflects Adequate Perfusion Head/Face: Positive: Normal Head/Face Inspection Eyes: Positive: EOMI ENT: Positive: Pharyngeal erythema, TMs normal, Uvula midline. Negative: Muffled voice, Hoarse voice, Sinus tenderness Respiratory/Lung Sounds: Positive: Clear to Auscultation, Breath Sounds Present Cardiovascular: Positive: RRR. Negative: Murmur Abdomen Description: Positive: Nontender Musculoskeletal: Positive: Strength/ROM Intact Neurological: Positive: Sensory/Motor Intact, Alert, Oriented to Person Place, Time, CN Intact II-III, Normal Gait, Speech Normal Psychiatric: Positive: Normal - [place] Coma Scale Best Eye Response: 4 - Spontaneous Best Motor Response: 6 - Obeys Commands Best Verbal Response: 5 - Oriented Diagnostics - Vital Signs Vital Signs Temp Pulse Resp BP Pulse Ox 09/14/17 07:46 98 F 89 20 113/76 100 - Laboratory Lab Results: Lab Results 09/14/17 Range/Units 07:59 Group A Strep Rapid Negative (Negative) Lab Statement: Any lab studies that have been ordered have been reviewed, and results considered in the medical decision making process. EENT Course/Dx - Course Course Of Treatment: 27 yr old female with sore throat and uri symtpoms, rapid strep negative; mono spot is drawn. - Diagnoses Provider Diagnoses: Upper respiratory infection Discharge - Discharge Plan Condition: Good Disposition: HOME Patient Education Materials: Upper Respiratory Infection (ED) Referrals: Karen Blackburn PA [Primary Care Provider] - 2 Days
== END 2017-09-14 08:25 | disposition home or self-care (01) ==
LOC: UCCORT 07:38
DX: J06.9 Acute upper respiratory infection, unspecified (principal); J45.990 Exercise induced bronchospasm
CPT/HCPCS: 36415; 86308; 87651; 99211; G0463

== ENCOUNTER 2018-06-22 10:11 | Emergency (ER) | payer BC ==
[2018-06-22 10:23] VITALS: BP 132/70
--- NOTE | 2018-06-22 10:31 | UC ---
General HPI - HPI Summary HPI Summary: sinus infection and sore throat x 1 week and worsening. sore throat from post nasal drip. sinus pain and green drainage. failed nasal saline and Mucinex tx's. - History of Current Complaint Chief Complaint: UCGeneralIllness Stated Complaint: SINUS COMPLAINT Time Seen by Provider: 06/22/18 10:19 Hx Obtained From: Patient Hx Last Menstrual Period: 06/13/18 Onset/Duration: Gradual Onset Timing: Constant Pain Intensity: 4 Alleviating: nothing Associated Signs & Symptoms: Positive: Headache - Allergy/Home Medications Allergies/Adverse Reactions: Allergies Allergy/AdvReac Type Severity Reaction Status Date / Time seasonal Allergy Eyes Uncoded 09/14/17 07:53 Itchy/Swollen/Red/Watery Home Medications: Home Medications guaiFENesin [Mucinex] 600 mg PO ONCE 06/22/18 [History Confirmed 06/22/18] PMH/Surg Hx/FS Hx/Imm Hx - Additional Past Medical History Additional PMH: sinusitis with surgery x 2. - Surgical History Surgical History: Yes Surgery Procedure, Year, and Place: Sinus Surgery X 2, 2009, [facility]. Right ACL Menisus, 2009, [place]. T&A, 2005, [facility] - Family History Known Family History: Positive: None - Social History Occupation: Employed Full-time Lives: With Family Alcohol Use: Weekly Substance Use Type: None Smoking Status (MU): Never Smoked Tobacco Have You Smoked in the Last Year: No - Immunization History Most Recent Influenza Vaccination: Not the 2014/2015 Season Most Recent Tetanus Shot: Tdap 2015 Vaccination Up to Date: Yes Review of Systems Constitutional: Negative Skin: Negative Eyes: Negative ENT: Sore Throat, Nasal Discharge, Sinus Pain/Tenderness Respiratory: Negative Cardiovascular: Negative Gastrointestinal: Negative Genitourinary: Negative Motor: Negative Neurovascular: Negative Musculoskeletal: Negative Neurological: Headache Psychological: Negative Is Patient Immunocompromised?: No All Other Systems Reviewed And Are Negative: Yes Physical Exam Triage Information Reviewed: Yes Appearance: Well-Appearing Vital Signs: Initial Vital Signs Temp 98.4 F 06/22/18 10:20 Pulse 66 06/22/18 10:20 Resp 15 06/22/18 10:20 BP 132/70 06/22/18 10:20 Pulse Ox 98 06/22/18 10:20 Vital Signs Reviewed: Yes Eyes: Positive: Conjunctiva Clear ENT: Positive: Pharynx normal, Nasal congestion, TMs normal, Sinus tenderness. Negative: Nasal drainage Neck: Positive: Supple, Nontender, No Lymphadenopathy Respiratory: Positive: Lungs clear, Normal breath sounds Cardiovascular: Positive: RRR, No Murmur Abdomen Description: Positive: Nontender, No Organomegaly, Soft Bowel Sounds: Positive: Present Musculoskeletal: Positive: ROM Intact Neurological: Positive: Alert Psychological: Positive: Age Appropriate Behavior Skin Exam: Normal Course/Dx - Differential Dx - Multi-Symptom Provider Diagnoses: sinusitis Discharge - Sign-Out/Discharge Documenting (check all that apply): Patient Departure All imaging exams completed and their final reports reviewed: No Studies - Discharge Plan Condition: Stable Disposition: HOME Prescriptions: Amoxicillin/Clavulanate TAB* [Augmentin TAB 875*] 875 mg PO BID 10 Days #20 tab Patient Education Materials: Sinusitis (ED) Forms: *Work Release Referrals: Karen Blackburn PA [Primary Care Provider] - - Billing Disposition and Condition Condition: STABLE Disposition: Home
== END 2018-06-22 10:36 | disposition home or self-care (01) ==
LOC: UCCORT 10:11
DX: J32.9 Chronic sinusitis, unspecified (principal); Z91.048 Other nonmedicinal substance allergy status
CPT/HCPCS: 99212; G0463

== ENCOUNTER 2018-08-04 16:14 | Emergency (ER) | payer BC ==
[2018-08-04 17:58] VITALS: BP 132/80
--- NOTE | 2018-08-04 18:17 | ED ---
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 she did take some sinus congestion medicine today. she states that the teacher across the hallway had strep at school. - History of Current Complaint Chief Complaint: UCRespiratory Hx Obtained From: Patient Onset/Duration: Gradual Onset Severity: Mild Cough: Nonproductive - Allergies/Home Medications Allergies/Adverse Reactions: Allergies Allergy/AdvReac Type Severity Reaction Status Date / Time seasonal Allergy Eyes Uncoded 08/04/18 17:48 Itchy/Swollen/Red/Watery Home Medications: Home Medications NK [No Home Medications Reported] 08/04/18 [History Confirmed 08/04/18] PMH/Surg Hx/FS Hx/Imm Hx Previously Healthy: Yes Respiratory History: Reports: Hx Asthma - EXERCISE INDUCED - Surgical History Surgery Procedure, Year, and Place: Sinus Surgery X 2, 2009, [facility]. Right ACL Menisus, 2009, [place]. T&A, 2005, [facility]. CHOLYCYSTECTOMY- 03/2018 Infectious Disease History: No Infectious Disease History: Denies: Traveled Outside the [place] in Last 30 Days - Family History Known Family History: Positive: None - Social History Alcohol Use: Occasionally Substance Use Type: Reports: None Smoking Status (MU): Never Smoked Tobacco Have You Smoked in the Last Year: No Review of Systems Constitutional: Negative Eyes: Negative Positive: Sore Throat, Ear Ache, Nasal Discharge Cardiovascular: Negative Positive: Cough - occasional Gastrointestinal: Negative Genitourinary: Negative Musculoskeletal: Negative Skin: Negative Neurological: Negative Psychological: Normal All Other Systems Reviewed And Are Negative: No Physical Exam Triage Information Reviewed: Yes Vital Signs On Initial Exam: Initial Vitals Temp Pulse Resp BP Pulse Ox 98.1 F 73 16 132/80 100 08/04/18 17:50 08/04/18 17:50 08/04/18 17:50 08/04/18 17:50 08/04/18 17:50 Vital Signs Reviewed: Yes Appearance: Positive: Well-Appearing, No Pain Distress, Well-Nourished Skin: Positive: Warm, Dry Eyes: Positive: Normal, EOMI, MAHSA ENT: Positive: Normal ENT inspection, Hearing grossly normal, Pharynx normal Neck: Positive: Supple, Nontender Respiratory/Lung Sounds: Positive: Clear to Auscultation, Breath Sounds Present Cardiovascular: Positive: Normal, RRR Abdomen Description: Positive: Nontender, Soft Bowel Sounds: Positive: Present Musculoskeletal: Positive: Normal, Strength/ROM Intact Neurological: Positive: Normal, Sensory/Motor Intact, CN Intact II-III Psychiatric: Positive: Normal AVPU Assessment: Alert Diagnostics - Vital Signs Vital Signs Temp Pulse Resp BP Pulse Ox 08/04/18 17:50 98.1 F 73 16 132/80 100 - Laboratory Lab Results: Lab Results 08/04/18 Range/Units 18:03 Group A Strep Rapid Negative (Negative) Lab Statement: Any lab studies that have been ordered have been reviewed, and results considered in the medical decision making process. EENT Course/Dx - Course Course Of Treatment: rapid strep is negative. will treat symptomatically with tylenol, motrin and decongestants. pt is non-toxic. no signs of focal infection. - Diagnoses Provider Diagnoses: Upper respiratory infection, Upper respiratory infection, viral Discharge - Sign-Out/Discharge Documenting (check all that apply): Patient Departure All imaging exams completed and their final reports reviewed: No Studies - Discharge Plan Condition: Stable Disposition: HOME Patient Education Materials: Upper Respiratory Infection (DC) Referrals: Karen Blackburn PA [Primary Care Provider] - Additional Instructions: Take tylenol and motrin and sudafed as instructed. return if worse or any new symptoms. Please follow up with your primary care physician if not better or worse. - Billing Disposition and Condition Condition: STABLE Disposition: Home
== END 2018-08-04 18:22 | disposition home or self-care (01) ==
LOC: UCCORT 16:14
DX: J06.9 Acute upper respiratory infection, unspecified (principal)
CPT/HCPCS: 87651; 99211; G0463

== ENCOUNTER 2019-11-01 14:57 | Emergency (ER) | payer BC ==
[2019-11-01 15:45] VITALS: BP 121/79
--- NOTE | 2019-11-01 15:46 | UC ---
Throat Pain/Nasal Ricci HPI - HPI Summary HPI Summary: 29yo female presenting at 28 weeks pregnany with chest congestion, dry cough, nasal congestion, and sore throat x6 days. Patient states symptoms just not improving. Denies sob and wheezing. Denies n/v. Denies known fever and chills. Denies body aches. 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 Taking cough drops for symptom relief. - History of Current Complaint Chief Complaint: UCGeneralIllness Stated Complaint: FEVER/COUGH/BILAT EAR PAIN Hx Obtained From: Patient Hx Last Menstrual Period: 08/03/18 Pain Intensity: 8 Pain Scale Used: 0-10 Numeric - Allergies/Home Medications Allergies/Adverse Reactions: Allergies Allergy/AdvReac Type Severity Reaction Status Date / Time seasonal Allergy Eyes Uncoded 11/01/19 15:45 Itchy/Swollen/Red/Watery Home Medications: Home Medications Pnv No.95/Ferrous Fum/Folic AC [ Vitamin & Minera 28-0.8 mg] 1 tab PO DAILY 11/01/19 [History Confirmed 11/01/19] PMH/Surg Hx/FS Hx/Imm Hx - Surgical History Surgical History: Yes Surgery Procedure, Year, and Place: Sinus Surgery X 2, 2009, [facility]. Right ACL Menisus, 2009, [place]. T&A, 2005, [facility]. CHOLYCYSTECTOMY- 03/2018 - Family History Known Family History: Positive: None - Social History Alcohol Use: None Substance Use Type: None Smoking Status (MU): Never Smoked Tobacco Have You Smoked in the Last Year: No - Immunization History Most Recent Influenza Vaccination: Not the 2015/2016 Season Most Recent Tetanus Shot: Tdap 2016 Vaccination Up to Date: Yes Review of Systems All Other Systems Reviewed And Are Negative: Yes Constitutional: Positive: Negative ENT: Positive: Sore Throat, Sinus Congestion Respiratory: Positive: Cough. Negative: Shortness Of Breath Cardiovascular: Positive: Negative Gastrointestinal: Positive: Negative Musculoskeletal: Positive: Negative Neurological/Mental Status: Positive: Negative Physical Exam - Summary Physical Exam Summary: Vital Signs Reviewed: Yes A+Ox3, no distress, well-appearing Eyes: Conjunctiva mildly inflamed b/l ENT: Hearing grossly normal, TM x 2 clear, moist, uvula midline, no exudate, no erythema Neck: Positive: Supple Respiratory: Positive: No respiratory distress, No accessory muscle use + CTA throughout no w/r Cardiovascular: RRR nl s1, s2 no m/r Musculoskeletal Exam: LUJAN x 4 without difficulty Neurological: Positive: Alert Psychological: Positive: age appropriate behavior Skin: Positive: no rash, no ecchymosis Vital Signs: Initial Vital Signs Temp 98.9 F 11/01/19 15:40 Pulse 106 11/01/19 15:40 Resp 17 11/01/19 15:40 BP 121/79 11/01/19 15:40 Pulse Ox 99 11/01/19 15:40 Throat Pain/Nasal Course/Dx - Course Course Of Treatment: Positive rapid flu A. I discussed influenza with the patient and educated on symptomatic treatment including continued use of cough drops, humidifiers, Tylenol, and nasal saline spray. I instructed the patient to contact her OB for any further recommendations on symptomatic treatment during . I further educated on worsening respiratory illness and instructed to go to the ED if any red flags occur. Patient was understanding and agreed with the treatment plan. - Differential Dx/Diagnosis Differential Diagnosis/HQI/PQRI: Influenza, Pharyngitis, Sinusitis, URI Provider Diagnosis: Influenza A Discharge ED - Sign-Out/Discharge Documenting (check all that apply): Patient Departure All imaging exams completed and their final reports reviewed: No Studies - Discharge Plan Condition: Stable Disposition: HOME Patient Education Materials: Influenza (ED) Referrals: Karen Blackburn PA [Primary Care Provider] - 5 Days Additional Instructions: As discussed, you tested positive for influenza A today. You may take tylenol as directed for fever and pain relief. Nasal saline spray may help alleviate congestion. Get plenty of rest and fluids. Follow up with your OB for further discussion and recommendations. Go to the emergency room with any new or worsening symptoms that were discussed today. - Billing Disposition and Condition Condition: STABLE Disposition: Home - Attestation Statements Provider Attestation: This patient was not seen by me. I was available for consult. Chart reviewed. JONATHAN
[2019-11-01 16:09] LABS: Influenza A Molecular POSITIVE (Negative)
== END 2019-11-01 16:23 | disposition home or self-care (01) ==
LOC: UCCORT 14:57
DX: O99.512 Diseases of the respiratory system complicating pregnancy, second trimester (principal); J10.1 Influenza due to other identified influenza virus with other respiratory manifestations; Z91.09 Other allergy status, other than to drugs and biological substances
CPT/HCPCS: 87651; 99211; G0463